=== PATIENT | female | born 1980 | race Hispanic/Latino ===

== ENCOUNTER 2016-10-26 07:16 | Emergency (ER) | payer BC ==
[2016-10-26 07:21] VITALS: BMI 29.8
[2016-10-26 07:22] VITALS: O2SAT 100
[2016-10-26] MEDS ORDERED: Sodium Chloride 0.9% 1,000 ML IV STA (07:34)
--- NOTE | 2016-10-26 07:50 | ED PDOC ---
Arrival/HPI - General Chief Complaint: GI Problem Time Seen by Provider: 10/26/16 07:27 Historian: Patient - History of Present Illness Narrative History of Present Illness (Text): 10/26/16 07:40 Ana Brumfield is a 36 year old female, with a history of cholecystectomy, presents to the emergency department complaining of 4 bouts of non-bloody vomiting and diarrhea since 3:30 a.m. today morning. Patient also reports of right sided chest pain which is worsened with movement. She thinks that pain could be to retching. She is currently on Bactroban topical ointment for a rash and recently finished 1 week course of PO antibiotics. Denies any fever, chills, headache, dizziness, difficulty breathing, coughing, urinary symptoms or any other complaints at this time. Time/Duration: 4-6 hours Symptom Onset: Gradual Symptom Course: Unchanged Severity Level: Mild Activities at Onset: Rest Context: Home Past Medical History - Provider Review Nursing Documentation Reviewed: Yes - Past History Past History: No Previous - Cardiac Hx Cardiac Disorders: No - Pulmonary Hx Respiratory Disorders: No - Neurological Hx Neurological Disorder: No - HEENT Hx HEENT Disorder: No - Renal Hx Renal Disorder: No - Endocrine/Metabolic Hx Endocrine Disorders: No - Hematological/Oncological Hx Blood Disorders: No - Integumentary Hx Dermatological Disorder: No - Musculoskeletal/Rheumatological Hx Musculoskeletal Disorders: No - Gastrointestinal Hx Gastrointestinal Disorders: No - Genitourinary/Gynecological Hx Genitourinary Disorders: No - Psychiatric Hx Psychophysiologic Disorder: Yes Hx Depression: Yes Hx Emotional Abuse: No Hx Physical Abuse: No Hx Substance Use: No - Surgical History Hx Cholecystectomy: Yes - Suicidal Assessment Feels Threatened In Home Enviroment: No Family/Social History - Physician Review Nursing Documentation Reviewed: Yes Family/Social History: No Known Family HX Smoking Status: Light Smoker < 10 Cigarettes Daily Hx Alcohol Use: No Hx Substance Use: No Allergies/Home Meds Allergies/Adverse Reactions: Allergies No Known Allergies Allergy (Verified 10/26/16 07:21) Home Medications: Home Meds Medication Instructions Recorded Confirmed Diclofenac Sodium [Diclozor] 1 appful TOP QID 10/26/16 10/26/16 Mupirocin 2% Cream [Bactroban 1 appful TOP TID 10/26/16 10/26/16 Cream] Review of Systems - Physician Review All systems were reviewed & negative as marked: Yes - Review of Systems Constitutional: Normal. absent: Fatigue, Fevers Respiratory: Normal. absent: SOB, Cough, Sputum Cardiovascular: Chest Pain. absent: Palpitations Gastrointestinal: Diarrhea, Nausea, Vomiting. absent: Abdominal Pain Genitourinary Female: Normal. absent: Dysuria Neurological: Normal. absent: Headache, Dizziness Psychiatric: Normal Physical Exam - Physical Exam Narrative Physical Exam (Text): Constitutional: No acute distress. Head: Normocephalic. Atraumatic. Eyes: PERRL. ENT: Moist mucous membranes. Neck: Supple. Cardiovascular: Regular rate. Bedside H.R 90 bpm. Chest: reproducible right parasternal tenderness. Respiratory: Clear to auscultation bilaterally. GI: Soft. Nontender. Nondistended. Back: No CVA tenderness. Musculoskeletal: No tenderness or swelling of extremities. Skin: No rash. Neurologic: Alert, no focal deficit. Vital Signs Reviewed: Yes Vital Signs Temp Pulse Resp BP Pulse Ox 10/26/16 07:21 98.2 F 108 H 16 144/82 100 Temperature: Afebrile Blood Pressure: Normal Pulse: Tachycardic Respiratory Rate: Normal Appearance: Positive for: Well-Appearing, Non-Toxic, Comfortable Pain Distress: None Mental Status: Positive for: Alert and Oriented X 3 Medical Decision Making ED Course and Treatment: 10/26/16 07:53 Impression: A 36 year old female who presents to the emergency department complaining of nausea, vomiting and diarrhea since 3:30 today. Differential Diagnosis include but are not limited to: enteritis vs. gastroenteritis vs. musculoskeletal chest pain Plan: -- EKG -- Labs -- Chest X-ray --Toradol -- Zofran -- HCG -- Urinalysis -- Reassess and disposition Progress Notes: 10/26/16 07:55 NSR @ [address] elevations. normal axis. 10/26/16 08:44 Chest X-ray interpreted by radiologist. No active disease. 10/26/16 08:48 Patient is feeling well. Labs unremarkable. Normal vital signs. No episodes of vomiting in ER. Will discharge home, f/u PMD, return to ER for worsening pain, fever, vomiting, dyspnea, or any other problem. - Lab Interpretations Lab Results: 10/26/16 08:00 10/26/16 08:00 Lab Results 10/26/16 08:00: WBC 5.9, RBC 4.23, Hgb 14.1, Hct 40.3, MCV 95.3, MCH 33.3, MCHC 35.0, RDW 12.2, Plt Count 219, MPV 9.7, Gran % 83.5 H, Lymph % (Auto) 11.6 L, [place] % (Auto) 3.1, Eos % (Auto) 1.5, Baso % (Auto) 0.3, Gran # 4.90, Lymph # 0.7 L, [place] # 0.2, Eos # 0.1, Baso # 0.02, Sodium 140, Potassium 4.0, Chloride 104, Carbon Dioxide 25, Anion Gap 15, BUN 17, Creatinine 0.8, Est GFR ( Amer) > 60, Est GFR (Non-Af Amer) > 60, Random Glucose 109, Calcium 9.2, Total Bilirubin 1.0, AST 20, ALT 16, Alkaline Phosphatase 54, Total Protein 7.6, Albumin 4.1, Globulin 3.5, Albumin/Globulin Ratio 1.2, Lipase 40 10/26/16 07:53: Urine Color Yellow, Urine Appearance Sl cloudy, Urine pH 7.5, Ur Specific [place] 1.020, Urine Protein Trace H, Urine Glucose (UA) Negative, Urine Ketones Trace H, Urine Blood Negative, Urine Nitrate Negative, Urine Bilirubin Negative, Urine Urobilinogen 1.0 H, Ur Leukocyte Esterase Trace H, Urine RBC Negative, Urine WBC 0 - 2, Ur Epithelial Cells 0 - 2, Urine HCG, Qual Negative - RAD Interpretation Radiology Orders: 10/26/16 07:34 CHEST PORTABLE [RAD] Stat - Medication Orders Current Medication Orders: Discontinued Medications Sodium Chloride (Sodium Chloride 0.9%) 1,000 mls @ 999 mls/hr IV .Q1H1M STA Stop: 10/26/16 08:34 Last Admin: 10/26/16 07:59 Dose: 999 MLS/HR eMAR Start Stop Document 10/26/16 07:59 [facility] [place] (Rec: 10/26/16 07:59 [facility] [place] [id number]) Intravenous Solution Start Date 10/26/16 Start Time 07:59 End Date 10/26/16 End time 09:00 Total Infusion Time 61 Ketorolac Tromethamine (Toradol) 30 mg IVP STAT STA Stop: 10/26/16 07:35 Last Admin: 10/26/16 07:59 Dose: 30 MG IVP Administration Document 10/26/16 07:59 [facility] (Rec: 10/26/16 07:59 [facility] [id number]) Charges for Administration # of IVP Administrations 1 Ondansetron HCl (Zofran Inj) 8 mg IVP STAT STA Stop: 10/26/16 07:35 Last Admin: 10/26/16 07:59 Dose: 8 MG IVP Administration Document 10/26/16 07:59 [facility] (Rec: 10/26/16 07:59 [facility] [id number]) Charges for Administration # of IVP Administrations 1 - Scribe Statement The provider has reviewed the documentation as recorded by the Cathryn Garcia Provider Attestation: All medical record entries made by the Qamaribalba were at my direction and personally dictated by me. I have reviewed the chart and agree that the record accurately reflects my personal performance of the history, physical exam, medical decision making, and the department course for this patient. I have also personally directed, reviewed, and agree with the discharge instructions and disposition. Disposition/Present on Arrival - Present on Arrival Any Indicators Present on Arrival: No History of DVT/PE: No History of Uncontrolled Diabetes: No Urinary Catheter: No History of Decub. Ulcer: No History Surgical Site Infection Following: None - Disposition Have Diagnosis and Disposition been Completed?: Yes Diagnosis: Vomiting and diarrhea Disposition: HOME/ ROUTINE Disposition Time: 08:49 Patient Plan: Discharge Condition: STABLE Discharge Instructions (ExitCare): Gastroenteritis (ED) Prescriptions: Ondansetron ODT [Zofran ODT] 4 mg PO Q8 #12 odt Referrals: Nikhil Walton MD [Primary Care Provider] - Follow up with primary Forms: WORK NOTE
[2016-10-26 08:12] LABS: PH,URINE 7.5 (4.7-8.0); URINE BILIRUBIN NEGATIVE (NEGATIVE); URINE BLOOD NEGATIVE (NEGATIVE); URINE GLUCOSE (UA) NEGATIVE (NEGATIVE); URINE KETONE TRACE mg/dL (NEGATIVE); URINE LEUKOCYTE ESTERASE TRACE Leu/uL (NEGATIVE); URINE PROTEIN TRACE mg/dL (<30 mg/dL)
[2016-10-26 08:13] LABS: URINE APPEARANCE SL CLOUDY (CLEAR); URINE COLOR YELLOW (YELLOW)
[2016-10-26 08:21] LABS: ADD MANUAL DIFF? NO
[2016-10-26 08:21] LABS: URINE EPITHELIAL CELLS 0 - 2 /hpf (0-5); URINE RBC NEGATIVE /hpf (0-2); URINE WBC 0 - 2 /hpf (0-6)
[2016-10-26 08:25] LABS: BASO # 0.02 K/mm3 (0.0-2.0); BASO % 0.3 % (0.0-3.0); EOS # 0.1 (0.0-0.7); EOS % 1.5 % (1.5-5.0); GRAN % 83.5 % (50.0-68.0); HEMATOCRIT 40.3 % (36.0-48.0); LYMPH # 0.7 (1.2-3.4); LYMPH % 11.6 % (22.0-35.0); MEAN CELL VOLUME 95.3 fL (80.0-105.0); MEAN CORPUSCULAR HEMOGLOBIN 33.3 pg (25.0-35.0); MEAN PLATELET VOLUME 9.7 fl (7.0-11.0); MONO # 0.2 (0.1-0.6); MONO % 3.1 % (1.0-6.0); PLATELET COUNT 219 10^3/uL (120.0-450.0); RED CELL DISTRIBUTION WIDTH 12.2 % (11.5-14.5); WHITE BLOOD COUNT 5.9 10^3/ul (4.5-11.0)
--- NOTE | 2016-10-26 08:25 | RAD ---
HISTORY: chest pain COMPARISON: No prior. FINDINGS: LUNGS: No active pulmonary disease. PLEURA: No significant pleural effusion identified, no pneumothorax apparent. CARDIOVASCULAR: Normal. OSSEOUS STRUCTURES: No significant abnormalities. VISUALIZED UPPER ABDOMEN: Normal. OTHER FINDINGS: None. IMPRESSION: No active disease.
[2016-10-26 08:36] LABS: ALB/GLOB RATIO 1.2 (1.1-1.8); ALKALINE PHOSPHATASE 54 U/L (38-133); ALT/SGPT 16 U/L (7-56); AST/SGOT 20 U/L (15-39); BLOOD UREA NITROGEN 17 mg/dL (7-21); CALCIUM 9.2 mg/dL (8.4-10.5); CARBON DIOXIDE 25 mmol/L (21-33); CHLORIDE 104 mmol/L (98-107); GFR AFRICAN-AMERICAN > 60; GLUCOSE,RANDOM 109 mg/dL (70-110); LIPASE 40 U/L (23-300); SODIUM 140 mmol/L (132-148); TOTAL PROTEIN 7.6 g/dL (5.8-8.3)
[2016-10-26 09:40] VITALS: BP 130/68; PULSE 78; RESP 18; TEMP 98.3
--- NOTE | 2016-10-26 19:59 | CARD ---
APPROVED REPORT EKG Measurement Heart [id number] <Conclusion> Sinus tachycardia Cannot rule out Anterior infarct, age undetermined Abnormal ECG
== END 2016-10-26 09:47 | disposition home or self-care (01) ==
LOC: ED 07:16
DX: R11.10 Vomiting, unspecified (principal); R19.7 Diarrhea, unspecified
CPT/HCPCS: 71010; 80053; 81001; 83690; 84703; 85025; 87086; 93005; 96361; 96374; 96375; 99283; J1885; J2405; J7040